=== PATIENT | female | born 1955 | race Caucasian/White ===

== ENCOUNTER → 2021-03-14 | Emergency (ER) | payer MEDICARE ==
[~2021-03-14] VITALS: Ht 170.2 cm; Wt 132.7 kg
[~2021-03-14] MED LIST: AMOX-422 PO; TETanus/Pertussis (Acell)/Diphther VAC/PF (Tdap-Adult) 0.5ml syringe IMVAC ONE
[2021-03-14 15:17] VITALS: BP 172/91
== END | disposition home or self-care (01) ==
LOC: ER 14:18
DX: S61.552A Open bite of left wrist, initial encounter (principal); Z88.2 Allergy status to sulfonamides; Z88.5 Allergy status to narcotic agent; Z91.040 Latex allergy status; Z79.2 Long term (current) use of antibiotics; Z20.3 Contact with and (suspected) exposure to rabies; W54.0XXA Bitten by dog, initial encounter; Y93.89 Activity, other specified; Y92.89 Other specified places as the place of occurrence of the external cause; Y99.8 Other external cause status
CPT/HCPCS: 90471; 90715; 99283

== ENCOUNTER 2023-02-16 14:15 | Emergency (ER) | payer BC ==
[~2023-02-16] VITALS: Ht 170.2 cm; Wt 131.0 kg
[~2023-02-16 14:15] MED LIST changes: -AMOX-422 PO; +ATOR20TA66 PO; +METO-395 PO; +PRED10TA23 PO; -TETanus/Pertussis (Acell)/Diphther VAC/PF (Tdap-Adult) 0.5ml syringe IMVAC ONE
[2023-02-16 15:20] VITALS: BP 157/84; PULSE 94; RESP 18; TEMP 97.9; O2SAT 87
[2023-02-16] MEDS ORDERED: LOP12.5T PO (16:41)
[2023-02-16] MEDS ORDERED: PRED20TA PO (16:41)
[2023-02-16] MEDS ORDERED: ATOR40TA PO (16:41)
[2023-02-16] MEDS ORDERED: predniSONE 20 mg tablet PO ONE (16:45)
== END 2023-02-16 16:57 | disposition home or self-care (01) ==
LOC: ER 14:16
DX: R05.9 Cough, unspecified (principal); I11.0 Hypertensive heart disease with heart failure; I50.9 Heart failure, unspecified; J44.9 Chronic obstructive pulmonary disease, unspecified; E11.9 Type 2 diabetes mellitus without complications; Z88.2 Allergy status to sulfonamides; Z88.5 Allergy status to narcotic agent; Z91.040 Latex allergy status; Z79.899 Other long term (current) drug therapy
CPT/HCPCS: 99283; J7512

== ENCOUNTER 2023-03-28 13:17 | Inpatient (IN) | payer BC ==
[~2023-03-28] VITALS: Ht 170.2 cm; Wt 135.4 kg
[~2023-03-28 13:17] MED LIST changes: +LOP12.5T PO; -PRED10TA23 PO
[2023-03-28 14:12] LABS: ALANINE AMINOTRANSFERASE 17 U/L (12-78); ALBUMIN 3.2 G/DL (3.4-5.0); ALBUMIN/GLOBULIN RATIO 0.9 (1.1-1.5); ALKALINE PHOSPHATASE 56 IU/L (46-116); ANION GAP 6 (8-16); ASPARTATE AMINO TRANSFERASE 18 U/L (10-37); BILIRUBIN,TOTAL 2.9 MG/DL (0.1-1.0); BLOOD UREA NITROGEN 15 MG/DL (7-18); BUN/CREATININE RATIO 22.7 (10.0-20.0); CALCIUM 8.8 MG/DL (8.5-10.1); CHLORIDE 105 MMOL/L (99-107); CREATININE 0.66 MG/DL (0.40-0.90); GLUCOSE 113 MG/DL (70-104); SODIUM 142 MMOL/L (135-145); TOTAL CARBON DIOXIDE 30.8 MMOL/L (24-32); TOTAL PROTEIN 6.6 G/DL (6.4-8.2); eCRCL 80 ML/MIN; eGFR 89 ML/MIN
[2023-03-28 14:17] LABS: PRO BRAIN NATRIURETIC PEPTIDE 2368 PG/ML (0-125)
[2023-03-28 14:30] LABS: BASOPHILS % (AUTO) 0.8 % (0-1); EOSINOPHILS # (AUTO) 0.1 X10'3 (0-0.9); EOSINOPHILS % (AUTO) 1.1 % (0-6); LYMPHOCYTES # (AUTO) 0.8 X10'3 (1.1-4.8); LYMPHOCYTES % (AUTO) 13.7 % (21-51); MONOCYTES # (AUTO) 0.6 X10'3 (0-0.9); MONOCYTES % (AUTO) 10.5 % (2-12); NEUTROPHILS # (AUTO) 4.1 X10'3 (1.8-7.7); NEUTROPHILS % (AUTO) 73.9 % (42-75); PLATELET COUNT 154 X10'3 (140-440); WHITE BLOOD COUNT 5.5 X10'3 (4.5-11.0)
[2023-03-28 14:52] LABS: HEMATOCRIT 50.7 % (35.0-45.0); HEMOGLOBIN 16.3 g/dl (12.0-16.0); MEAN CORPUSCULAR HEMOGLOBIN 24.8 PG (27.0-31.0); MEAN CORPUSCULAR VOLUME 77.4 FL (78-98); RED BLOOD COUNT 6.55 X10'6 (4.20-5.60)
[2023-03-28 14:53] LABS: MEAN CORPUSCULAR HGB CONC 32.1 g/dL (33.0-36.5)
[2023-03-28] MEDS ORDERED: pantoprazole 40mg IV 40 MG in normal saline 100ml IV soln 100 ML IV ONE (20:00)
[2023-03-28] MEDS ORDERED: famotidine/PF 10 mg/ml inj IV ONE (20:00)
[2023-03-28] MEDS ORDERED: aspirin 325mg tablet PO ONE (20:00)
[2023-03-28] MEDS ORDERED: furosemide 10 MG/1 ML 10ml inj IV ONE (20:00)
[2023-03-28] MEDS ORDERED: pantoprazole 40MG/NS 100ML BAG 100 ML IV ONE (20:10)
[2023-03-28 20:54] LABS: D-DIMER 1.07 MG/L FEU (0-0.50)
[2023-03-28] MEDS ORDERED: temazepam 15mg capsule PO PRN (21:00)
[2023-03-28] MEDS ORDERED: diphenhydrAMINE 25mg capsule PO PRN (23:30)
[2023-03-28] MEDS ORDERED: ondansetron/PF 4mg/2ml inj IV PRN (23:30)
[2023-03-28] MEDS ORDERED: acetaminophen 325mg tablet PO PRN ×2 (23:30)
[2023-03-28] MEDS ORDERED: ondansetron 4mg rapidly disintigrating tab PO PRN (23:30)
[2023-03-28] MEDS ORDERED: bisacodyl 10mg suppository rectal RC PRN (23:30)
[2023-03-28] MEDS ORDERED: mag hydrox/Alum hydrox/simeth 30ml oral suspension PO PRN (23:30)
[2023-03-28] MEDS ORDERED: diphenhydrAMINE 50 mg/ml inj IV PRN (23:30)
[2023-03-28] MEDS ORDERED: normal saline 1000ml 1,000 ML IV SCH (23:30)
[2023-03-28] MEDS ORDERED: acetaminophen 650mg rectal suppository RC PRN (23:30)
[2023-03-28] MEDS ORDERED: magnesium hydroxide 30ml (MOM) UD suspension PO PRN (23:30)
[2023-03-28] MEDS ORDERED: ipratropium/albuterol 3ml nebule NEB PRN (23:30)
[2023-03-28] MEDS ORDERED: morphine 2 MG/ML inj. syringe IV PRN ×2 (23:30)
[2023-03-28] MEDS ORDERED: DEXTROSE 15 GM of carb/4 tabs (each vial/BOTTLE has 4 tablets) PO PRN ×2 (23:35)
[2023-03-28] MEDS ORDERED: glucagon, human recombinant 1mg kit SUBCUT PRN (23:35)
[2023-03-28] MEDS ORDERED: MESSAGE TO PHARMACY PO ONE (23:35)
[2023-03-28] MEDS ORDERED: dextrose 50%-water 50ml dispensing syringe IV PRN ×2 (23:35)
[2023-03-28] MEDS ORDERED: insulin Lispro (HumaLOG) vial - multi-dose SQ SCH (23:35)
[2023-03-28 23:57] LABS: APTT 26 SECONDS (22-32); INR 1.1 INR; PROTHROMBIN TIME 11.4 SECONDS (9.0-12.0)
[2023-03-29] VITALS (9 sets, daily range): BP systolic 114–165; BP diastolic 68–83; PULSE 80–111; RESP 16–22; TEMP 97.7–99; O2SAT 92–94
[2023-03-29 00:08] LABS: MAGNESIUM 1.9 MG/DL (1.5-2.4); PHOSPHORUS 4.2 MG/DL (2.3-4.5); THYROID STIMULATING HORMONE 1.3 ulU/ml (0.34-4.50)
--- NOTE | 2023-03-29 06:23 | NUR ---
Patient in room [facility] 4022. I have received report from LESLY Mcneil and had the opportunity to ask questions and assume patient care.
[2023-03-29] MEDS: furosemide 10 MG/1 ML 10ml inj IV SCH ×2 (07:45→20:12)
[2023-03-29] MEDS: aspirin 81mg tab.chew PO SCH (07:55)
[2023-03-29] MEDS: pantoprazole 40mg Tablet.DR PO SCH (07:56)
[2023-03-29] MEDS: heparin, porcine 5000 units/ml vial SQ SCH ×3 (07:58→16:00)
[2023-03-29] MEDS: docusate sod 100mg capsule PO SCH ×2 (07:58→20:00)
[2023-03-29] MEDS: nitroGLYCERIN 0.4mg/hour patch TD SCH (07:59)
[2023-03-29 08:02] LABS: EOSINOPHILS # (AUTO) 0.1 X10'3 (0-0.9); LYMPHOCYTES # (AUTO) 0.8 X10'3 (1.1-4.8); MONOCYTES # (AUTO) 0.4 X10'3 (0-0.9); WHITE BLOOD COUNT 4.5 X10'3 (4.5-11.0)
[2023-03-29 08:04] LABS: BASOPHILS % (AUTO) 0.6 % (0-1); EOSINOPHILS % (AUTO) 3.1 % (0-6); HEMATOCRIT 50.1 % (35.0-45.0); HEMOGLOBIN 15.4 g/dl (12.0-16.0); LYMPHOCYTES % (AUTO) 18.7 % (21-51); MEAN CORPUSCULAR HEMOGLOBIN 24.3 PG (27.0-31.0); MEAN CORPUSCULAR HGB CONC 30.8 g/dL (33.0-36.5); MEAN CORPUSCULAR VOLUME 78.9 FL (78-98); MEAN PLATELET VOLUME 10.1 FL (7.4-10.4); MONOCYTES % (AUTO) 9.3 % (2-12); NEUTROPHILS # (AUTO) 3.1 X10'3 (1.8-7.7); NEUTROPHILS % (AUTO) 68.3 % (42-75); PLATELET COUNT 146 X10'3 (140-440); RED BLOOD COUNT 6.35 X10'6 (4.20-5.60); RED CELL DISTRIBUTION WIDTH 17.6 % (11.5-14.5)
[2023-03-29 08:24] LABS: ALANINE AMINOTRANSFERASE 14 U/L (12-78); ALBUMIN 2.9 G/DL (3.4-5.0); ALBUMIN/GLOBULIN RATIO 0.9 (1.1-1.5); ALKALINE PHOSPHATASE 49 IU/L (46-116); ANION GAP 4 (8-16); ASPARTATE AMINO TRANSFERASE 24 U/L (10-37); BILIRUBIN,TOTAL 2.9 MG/DL (0.1-1.0); BLOOD UREA NITROGEN 11 MG/DL (7-18); BUN/CREATININE RATIO 18.3 (10.0-20.0); CALCIUM 8.7 MG/DL (8.5-10.1); CHLORIDE 103 MMOL/L (99-107); GLUCOSE 81 MG/DL (70-104); POTASSIUM 3.7 MMOL/L (3.5-5.1); SODIUM 142 MMOL/L (135-145); TOTAL CARBON DIOXIDE 34.6 MMOL/L (24-32); TOTAL PROTEIN 6.1 G/DL (6.4-8.2); eCRCL 88 ML/MIN; eGFR > 90 ML/MIN
[2023-03-29] MEDS ORDERED: furosemide 40mg/4ml inj IV SCH (08:25)
[2023-03-29] MEDS: lisinopril 10 MG tablet PO SCH (08:43)
[2023-03-29 10:31] LABS: BILIRUBIN,URINE NEGATIVE (Neg); CLARITY,URINE CLEAR (Clear); COLOR,URINE YELLOW (Yellow); GLUCOSE, URINE NEGATIVE (Neg); KETONES,URINE NEGATIVE (Neg); LEUKOCYTE ESTERASE ,URINE NEGATIVE (Neg); NITRITES, URINE NEGATIVE (Neg); OCCULT BLOOD,URINE NEGATIVE (Neg); PH,URINE 5.5 (4.8-8.0); PROTEIN,URINE NEGATIVE (Neg); UROBILINOGEN,URINE 0.2 E.U/dL (0.2-1.0)
[2023-03-29 10:34] LABS: UA COLLECTION TYPE CLN CATCH MIDSTREAM
[2023-03-29] MEDS ORDERED: nitroGLYCERIN 0.4mg SUBLingual tab SL PRN (11:35)
[2023-03-29] MEDS ORDERED: regadenoson 0.4mg/5ml syringe IV PRN (11:35)
[2023-03-29] MEDS ORDERED: aminophylline 250mg/10ml inj. IV PRN (11:35)
[2023-03-29] MEDS ORDERED: metoprolol tartrate 1mg/ml inj IV PRN (11:35)
[2023-03-29] MEDS ORDERED: ATOR40TA72 PO (12:51)
[2023-03-29] MEDS ORDERED: METO25TA6 PO (12:51)
--- NOTE | 2023-03-29 14:54 | NUR ---
[employer] documentation: I have reviewed and agree with all interventions, assessments performed and documented by Carlos Pritchett LVN.
[2023-03-30] VITALS (12 sets, daily range): BP systolic 115–142; BP diastolic 49–94; PULSE 85–105; RESP 16–22; TEMP 97.6–98.9; O2SAT 90–97
[2023-03-30] MEDS: heparin, porcine 5000 units/ml vial SQ SCH ×3 (00:30→16:40)
--- NOTE | 2023-03-30 06:17 | NUR ---
Problems reprioritized. Patient report given, questions answered & plan of care reviewed with LESLY Cook.
[2023-03-30 06:46] LABS: ALANINE AMINOTRANSFERASE 16 U/L (12-78); ALKALINE PHOSPHATASE 55 IU/L (46-116); ANION GAP 6 (8-16); ASPARTATE AMINO TRANSFERASE 24 U/L (10-37); BILIRUBIN,TOTAL 3.1 MG/DL (0.1-1.0); BLOOD UREA NITROGEN 19 MG/DL (7-18); BUN/CREATININE RATIO 27.5 (10.0-20.0); CHLORIDE 102 MMOL/L (99-107); CREATININE 0.69 MG/DL (0.40-0.90); GLUCOSE 98 MG/DL (70-104); POTASSIUM 3.6 MMOL/L (3.5-5.1); SODIUM 142 MMOL/L (135-145); TOTAL CARBON DIOXIDE 33.6 MMOL/L (24-32); TOTAL PROTEIN 6.1 G/DL (6.4-8.2); eCRCL 77 ML/MIN; eGFR 85 ML/MIN
[2023-03-30 06:48] LABS: BASOPHILS % (AUTO) 0.5 % (0-1); EOSINOPHILS # (AUTO) 0.1 X10'3 (0-0.9); EOSINOPHILS % (AUTO) 2.6 % (0-6); HEMATOCRIT 48.2 % (35.0-45.0); HEMOGLOBIN 15.2 g/dl (12.0-16.0); LYMPHOCYTES # (AUTO) 0.9 X10'3 (1.1-4.8); LYMPHOCYTES % (AUTO) 16.3 % (21-51); MEAN CORPUSCULAR HEMOGLOBIN 24.5 PG (27.0-31.0); MEAN CORPUSCULAR HGB CONC 31.6 g/dL (33.0-36.5); MEAN CORPUSCULAR VOLUME 77.6 FL (78-98); MEAN PLATELET VOLUME 9.8 FL (7.4-10.4); MONOCYTES # (AUTO) 0.5 X10'3 (0-0.9); MONOCYTES % (AUTO) 9.2 % (2-12); NEUTROPHILS # (AUTO) 3.8 X10'3 (1.8-7.7); NEUTROPHILS % (AUTO) 71.4 % (42-75); PLATELET COUNT 149 X10'3 (140-440); RED BLOOD COUNT 6.21 X10'6 (4.20-5.60); RED CELL DISTRIBUTION WIDTH 17.5 % (11.5-14.5); WHITE BLOOD COUNT 5.4 X10'3 (4.5-11.0)
[2023-03-30] MEDS: furosemide 10 MG/1 ML 10ml inj IV SCH ×2 (08:00→19:31)
[2023-03-30] MEDS: docusate sod 100mg capsule PO SCH ×2 (08:00→19:32)
[2023-03-30] MEDS: nitroGLYCERIN 0.4mg/hour patch TD SCH (08:00)
[2023-03-30] MEDS: lisinopril 10 MG tablet PO SCH (08:00)
[2023-03-30] MEDS: aspirin 81mg tab.chew PO SCH (08:30)
[2023-03-30] MEDS: pantoprazole 40mg Tablet.DR PO SCH (08:35)
[2023-03-30] MEDS ORDERED: pneumococcal 23-VAL P-sac vacc 25 mcg/0.5ml vial IMVAC ONE (10:00)
--- NOTE | 2023-03-30 18:38 | NUR ---
Student documentation: I have reviewed all interventions, assessments performed and documented by Alexia HUTTON of [facility]. Student Medication Administration: For this medication-pass time frame of 1639-2192, all medication were reviewed, dispensed, administered and documented per hospital policy by Alexia HUTTON of [facility].
[2023-03-31] MEDS: heparin, porcine 5000 units/ml vial SQ SCH ×2 (00:13→08:45)
--- NOTE | 2023-03-31 05:28 | NUR ---
reported to days. noted pt anticipates discharge today if oxygen levels stay stable. pt has kerlex on her ankel.
[2023-03-31 06:23] LABS: BASOPHILS % (AUTO) 0.6 % (0-1); EOSINOPHILS # (AUTO) 0.2 X10'3 (0-0.9); LYMPHOCYTES # (AUTO) 0.7 X10'3 (1.1-4.8); MONOCYTES # (AUTO) 0.4 X10'3 (0-0.9); MONOCYTES % (AUTO) 8.1 % (2-12); NEUTROPHILS # (AUTO) 4.1 X10'3 (1.8-7.7)
[2023-03-31 06:25] LABS: EOSINOPHILS % (AUTO) 3.3 % (0-6); HEMATOCRIT 47.2 % (35.0-45.0); LYMPHOCYTES % (AUTO) 12.5 % (21-51); MEAN CORPUSCULAR HEMOGLOBIN 24.7 PG (27.0-31.0); MEAN CORPUSCULAR HGB CONC 31.9 g/dL (33.0-36.5); MEAN CORPUSCULAR VOLUME 77.4 FL (78-98); NEUTROPHILS % (AUTO) 75.5 % (42-75); PLATELET COUNT 145 X10'3 (140-440); RED CELL DISTRIBUTION WIDTH 17.8 % (11.5-14.5); WHITE BLOOD COUNT 5.4 X10'3 (4.5-11.0)
--- NOTE | 2023-03-31 06:27 | NUR ---
Received report from MADY Argueta RN.
[2023-03-31 06:30] VITALS: BP 144/78; PULSE 96; RESP 17; TEMP 97.7; O2SAT 95
[2023-03-31 06:31] LABS: ALANINE AMINOTRANSFERASE 15 U/L (12-78); ALKALINE PHOSPHATASE 54 IU/L (46-116); ANION GAP 4 (8-16); ASPARTATE AMINO TRANSFERASE 22 U/L (10-37); BILIRUBIN,TOTAL 2.8 MG/DL (0.1-1.0); BLOOD UREA NITROGEN 22 MG/DL (7-18); BUN/CREATININE RATIO 34.4 (10.0-20.0); CALCIUM 8.9 MG/DL (8.5-10.1); CHLORIDE 102 MMOL/L (99-107); CREATININE 0.64 MG/DL (0.40-0.90); GLUCOSE 106 MG/DL (70-104); POTASSIUM 3.2 MMOL/L (3.5-5.1); SODIUM 141 MMOL/L (135-145); TOTAL CARBON DIOXIDE 35.1 MMOL/L (24-32); TOTAL PROTEIN 6.1 G/DL (6.4-8.2); eCRCL 83 ML/MIN; eGFR > 90 ML/MIN
[2023-03-31] MEDS ORDERED: atorvastatin 20mg tablet PO SCH (08:00)
[2023-03-31] MEDS ORDERED: metoprolol tartrate 25mg tablet PO SCH (08:00)
[2023-03-31] MEDS: pantoprazole 40mg Tablet.DR PO SCH (08:41)
[2023-03-31] MEDS: docusate sod 100mg capsule PO SCH (08:43)
[2023-03-31] MEDS: aspirin 81mg tab.chew PO SCH (08:43)
[2023-03-31] MEDS: lisinopril 10 MG tablet PO SCH (08:43)
[2023-03-31] MEDS: nitroGLYCERIN 0.4mg/hour patch TD SCH (08:44)
[2023-03-31] MEDS ORDERED: magnesium 2GM in 50ml NS 50 ML IV PRN (08:55)
[2023-03-31] MEDS ORDERED: magnesium 4gm in 100ml NS 100 ML IV PRN (08:55)
[2023-03-31] MEDS ORDERED: potassium Cl 40MEQ/1/2NS 520ml 520 ML IV PRN (08:55)
[2023-03-31] MEDS ORDERED: magnesium Cl slow-release 64mg tablet PO PRN (08:55)
[2023-03-31] MEDS ORDERED: potassium Cl 20 mEq SR tablet PO PRN ×2 (08:55)
[2023-03-31] MEDS: furosemide 10 MG/1 ML 10ml inj IV SCH (09:06)
[2023-03-31 10:00] VITALS: BP 108/59; PULSE 87; RESP 15; TEMP 98.3; O2SAT 93
[2023-03-31] MEDS ORDERED: FURO-150 PO (10:26)
[2023-03-31] MEDS ORDERED: LISI10TA27 PO (10:26)
--- NOTE | 2023-03-31 13:14 | NUR ---
O2 Sat at rest on room air:__87_% If below 89%: Recovery O2 Sat at rest on __2_LPM:__93_%:__95_% via___NC (mask/nasal cannula, etc..) No further documentation is necessary. If O2 Sat did not drop below 89% on room air,ambulate patient on room air. O2 Sat while ambulating on room air:___% Recovery O2 Sat while ambulating on ___LPM:___% No further documentation is necessary. If patient does not drop below 89% while ambulating, he/she does not qualify for home O2.
--- NOTE | 2023-03-31 14:25 | NUR ---
O2 delivered to room
--- NOTE | 2023-03-31 14:55 | NUR ---
Patient discharged home with family/friend. IV discontinued with canula intact. Patient aware that she has new medications to pickup at the pharmacy. Patient stated that she has gotten text messages about the medications. O2 delivered to room and taken home on discharge. All education completed with patient with verbal acknowledgement of understanding completed. Patient dressed herself and was waiting for her family/friend after discharge paperwork was completed. A&Ox4, talking and ready for discharge. Patient WC to [facility], patient walked to car from independently. Tolerated well without any issues.
[2023-03-31] MEDS ORDERED: K and/or MAG REPLACEMENT MC SCH (20:00)
== END 2023-03-31 14:50 | disposition home or self-care (01) | DRG 291 ==
LOC: ER 13:17 → ED HOLD 23:32 → ORTHO 4S 03-29 01:31
PROVIDERS: ADMIT Family Medicine; ATTEND Family Medicine
PROC: 4A02XM4 Measurement of Cardiac Total Activity, External Approach (ICD-10-PCS; principal; 2023-03-30)
PROC: 3E073KZ Introduction of Other Diagnostic Substance into Coronary Artery, Percutaneous Approach (ICD-10-PCS; 2023-03-30)
PROC: 3E0234Z Introduction of Serum, Toxoid and Vaccine into Muscle, Percutaneous Approach (ICD-10-PCS; 2023-03-30)
DX: I11.0 Hypertensive heart disease with heart failure (principal); I50.43 Acute on chronic combined systolic (congestive) and diastolic (congestive) heart failure; J96.21 Acute and chronic respiratory failure with hypoxia; Z68.42 Body mass index [BMI] 45.0-49.9, adult; G47.33 Obstructive sleep apnea (adult) (pediatric); K21.9 Gastro-esophageal reflux disease without esophagitis; I27.81 Cor pulmonale (chronic); K76.0 Fatty (change of) liver, not elsewhere classified; I25.5 Ischemic cardiomyopathy; J44.9 Chronic obstructive pulmonary disease, unspecified; E11.9 Type 2 diabetes mellitus without complications; E66.01 Morbid (severe) obesity due to excess calories; Z88.5 Allergy status to narcotic agent; Z88.2 Allergy status to sulfonamides; Z91.040 Latex allergy status; Z91.199 Patient's noncompliance with other medical treatment and regimen due to unspecified reason; Z23 Encounter for immunization
CPT/HCPCS: 36415; 71045; 78452; 80053; 81003; 82948; 83735; 83880; 84100; 84443; 84484; 85025; 85379; 85610; 85730; 87081; 90732; 93005; 93017; 94760; 97116; 97161; 97530; 99285; A9500; C9113; G0378; J1644; J1815; J1940; J2785; J3490; J7030

== ENCOUNTER 2024-04-29 03:33 | Emergency (ER) | payer BC ==
[~2024-04-29] VITALS: Ht 170.2 cm; Wt 131.5 kg
[~2024-04-29 03:33] MED LIST changes: +ALBU90AE INH; -ATOR20TA66 PO; +ATOR40TA72 PO; +CEFD300C3 PO; +ERGO500041 PO; +FLUT1DIS20 INH; +FURO-150 PO; +LISI10TA27 PO; -LOP12.5T PO; +PRED10TA23 PO
[2024-04-29 04:18] LABS: BASOPHILS % (AUTO) 0.3 % (0-1); EOSINOPHILS # (AUTO) 0.1 X10'3 (0-0.9); EOSINOPHILS % (AUTO) 0.4 % (0-6); HEMATOCRIT 43.4 % (35.0-45.0); HEMOGLOBIN 14.1 g/dl (12.0-16.0); LYMPHOCYTES % (AUTO) 6.6 % (21-51); MEAN CORPUSCULAR HEMOGLOBIN 26.7 PG (27.0-31.0); MEAN CORPUSCULAR HGB CONC 32.4 g/dL (33.0-36.5); MEAN CORPUSCULAR VOLUME 82.4 FL (78-98); MEAN PLATELET VOLUME 9.5 FL (7.4-10.4); MONOCYTES # (AUTO) 1.4 X10'3 (0-0.9); MONOCYTES % (AUTO) 9.1 % (2-12); NEUTROPHILS # (AUTO) 12.6 X10'3 (1.8-7.7); NEUTROPHILS % (AUTO) 83.6 % (42-75); PLATELET COUNT 168 X10'3 (140-440); RED BLOOD COUNT 5.27 X10'6 (4.20-5.60); RED CELL DISTRIBUTION WIDTH 15.7 % (11.5-14.5); WHITE BLOOD COUNT 15.1 X10'3 (4.5-11.0)
[2024-04-29 04:32] LABS: ALANINE AMINOTRANSFERASE 31 U/L (12-78); ALBUMIN 3.4 G/DL (3.4-5.0); ALBUMIN/GLOBULIN RATIO 1.2 (1.1-1.5); ALKALINE PHOSPHATASE 67 IU/L (46-116); ANION GAP 4 (8-16); ASPARTATE AMINO TRANSFERASE 21 U/L (10-37); BILIRUBIN,TOTAL 1.4 MG/DL (0.1-1.0); BLOOD UREA NITROGEN 25 MG/DL (7-18); BUN/CREATININE RATIO 28.7 (10.0-20.0); CALCIUM 8.5 MG/DL (8.5-10.1); CHLORIDE 106 MMOL/L (99-107); CREATININE 0.87 MG/DL (0.40-0.90); GLUCOSE 120 MG/DL (70-104); POTASSIUM 3.3 MMOL/L (3.5-5.1); SODIUM 144 MMOL/L (135-145); TOTAL CARBON DIOXIDE 33.7 MMOL/L (24-32); TOTAL PROTEIN 6.3 G/DL (6.4-8.2); eCRCL 60 ML/MIN; eGFR 65 ML/MIN
[2024-04-29 04:39] LABS: PRO BRAIN NATRIURETIC PEPTIDE 1994 PG/ML (0-125)
[2024-04-29] MEDS ORDERED: PRED20TA PO (05:28)
[2024-04-29] MEDS: ipratropium/albuterol 3ml nebule NEB ONE (05:41)
[2024-04-29 05:42] VITALS: PULSE 78; RESP 20; O2SAT 93
[2024-04-29 05:47] VITALS: PULSE 77; RESP 18; O2SAT 98
[2024-04-29] MEDS: potassium Cl 20 mEq SR tablet PO ONE (06:09)
[2024-04-29] MEDS: magnesium oxide 400mg tablet PO ONE (06:09)
[2024-04-29] MEDS: methylPREDNISolone sod succ 125mg/2ml vial IV ONE (06:10)
[2024-04-29] MEDS: dexamethasone 4mg tablet PO ONE (06:10)
[2024-04-29 06:25] VITALS: BP 122/68; PULSE 83; RESP 13; TEMP 98.3; O2SAT 95
== END 2024-04-29 06:27 | disposition home or self-care (01) ==
LOC: ER 03:34
DX: J44.1 Chronic obstructive pulmonary disease with (acute) exacerbation (principal); Z20.822 Contact with and (suspected) exposure to COVID-19; I11.0 Hypertensive heart disease with heart failure; I50.43 Acute on chronic combined systolic (congestive) and diastolic (congestive) heart failure; E11.9 Type 2 diabetes mellitus without complications; G47.30 Sleep apnea, unspecified; Z88.2 Allergy status to sulfonamides; Z88.5 Allergy status to narcotic agent; Z91.040 Latex allergy status; Z79.899 Other long term (current) drug therapy
CPT/HCPCS: 36415; 71045; 80053; 83880; 84484; 85025; 87811; 93005; 94640; 96374; 99285; J2919; 94760; A4615